=== PATIENT | female | born 1940 ===

== ENCOUNTER 2022-08-03 14:27 | Emergency (ER) | payer SELFPAY ==
[~2022-08-03] VITALS: Ht 152.4 cm; Wt 69.0 kg
[2022-08-03] MEDS ORDERED: CLONIDINE 0.2MG TABLET PO ONE (15:45)
[2022-08-03 16:52] LABS: BASOPHILS % 0.3 % (0.0-2.0); EOSINOPHILS % 0.2 % (0.0-5.0); HEMATOCRIT. 43.5 % (36.0-48.0); HEMOGLOBIN. 15.2 g/dL (12.0-16.0); LYMPHOCYTES % 22.9 % (20.0-50.0); MEAN CORPUSCULAR HEMOGLOBIN 33.3 pg (28.0-32.0); MEAN CORPUSCULAR VOLUME 95.5 fL (81.0-99.0); MEAN PLATELET VOLUME 7.4 fl (7.4-10.4); NEUTROPHILS % 69.6 % (40.0-76.0); PLATELET 390 x1000/uL (130-400); RED BLOOD CELL COUNT 4.56 mill/uL (4.2-5.4); RED CELL DISTRIBUTION WIDTH 13.5 % (11.6-14.6)
[2022-08-03 16:53] LABS: CHLORIDE 99 mEq/L (98-107)
[2022-08-03 16:59] LABS: INR 0.9; PROTHROMBIN TIME 10.1 sec (9.6-11.0)
[2022-08-03 17:59] VITALS: BP 185/100
== END 2022-08-03 19:06 | disposition home or self-care (01) ==
LOC: ER 14:27
DX: R04.0 Epistaxis (principal); I10 Essential (primary) hypertension; Z98.890 Other specified postprocedural states
CPT/HCPCS: 36415; 80053; 85025; 99283